=== PATIENT | male | born 1940 | race Caucasian/White ===

== ENCOUNTER → 2020-12-20 | Outpatient (CLI) | payer BC | LOC: SJCVCIMAG 14:07 → SJCVC 14:07 | PROVIDERS: ATTEND Internal Medicine Cardiovascular Disease | DX: I65.23 Occlusion and stenosis of bilateral carotid arteries (principal); I25.10 Atherosclerotic heart disease of native coronary artery without angina pectoris; I10 Essential (primary) hypertension; E78.00 Pure hypercholesterolemia, unspecified; I73.9 Peripheral vascular disease, unspecified; I71.4 Abdominal aortic aneurysm, without rupture; R06.00 Dyspnea, unspecified ==

== ENCOUNTER → 2021-01-08 | Outpatient (CLI) | payer BC | LOC: SJCVC 07:57 → SJCVCIMAG 08:07 | PROVIDERS: ATTEND Internal Medicine Cardiovascular Disease | DX: I25.10 Atherosclerotic heart disease of native coronary artery without angina pectoris (principal); I10 Essential (primary) hypertension; E78.5 Hyperlipidemia, unspecified ==

== ENCOUNTER → 2021-03-24 | Outpatient (CLI) | payer MEDICARE ==
[~2021-03-24] VITALS: Ht 170.2 cm; Wt 81.6 kg
[~2021-03-24] MED LIST: ASPIRIN EC325 MG PO; CALCIUM MAGNES1 EAC2 PO; EFFIENT10 MG PO; FISH OIL 1,001000 M3 PO; MILK THISTLE150 MG PO; NORVASC10 MG PO; SAW PALMETTO160 MG PO; SUPER THERAVIT1 EACH PO; VALSARTAN320 MG PO; VITAMIN B-121000 MC2 PO; VITAMIN C500 M2 PO; VITAMIN E1000 UNIT PO
[2021-03-24 08:28] VITALS: BP 150/88
[2021-03-24 09:04] LABS: HEMATOCRIT 46.1 % (42.0-52.0); HEMOGLOBIN 15.8 gm/dL (14.0-18.0); MCH 32.9 pg (26.0-34.0); MCHC 34.3 g/dL (28.0-37.0); MCV 96.2 fL (80.0-100.0); RBC 4.79 mil/uL (4.50-6.00); RDW 13.3 % (10.5-14.5); WBC 8.1 thou/uL (4.0-11.0)
[2021-03-24 09:10] LABS: CALCIUM 9.6 mg/dL (8.5-10.1); CREATININE 0.9 mg/dL (0.7-1.3)
[2021-03-24 09:11] LABS: POTASSIUM 4.8 mmol/L (3.5-5.1)
== END | disposition home or self-care (01) ==
LOC: CATH 03-03 08:30
PROVIDERS: ATTEND Nuclear Medicine Nuclear Cardiology
DX: I70.211 Atherosclerosis of native arteries of extremities with intermittent claudication, right leg (principal); I70.1 Atherosclerosis of renal artery; M79.604 Pain in right leg; I12.9 Hypertensive chronic kidney disease with stage 1 through stage 4 chronic kidney disease, or unspecified chronic kidney disease; N18.9 Chronic kidney disease, unspecified; E78.5 Hyperlipidemia, unspecified; M79.605 Pain in left leg; I25.10 Atherosclerotic heart disease of native coronary artery without angina pectoris; I42.9 Cardiomyopathy, unspecified; N40.0 Benign prostatic hyperplasia without lower urinary tract symptoms; F17.210 Nicotine dependence, cigarettes, uncomplicated; Z98.890 Other specified postprocedural states; Z79.899 Other long term (current) drug therapy; Z98.41 Cataract extraction status, right eye; Z98.42 Cataract extraction status, left eye; Z88.8 Allergy status to other drugs, medicaments and biological substances

== ENCOUNTER → 2021-04-02 | Outpatient (CLI) | payer MEDICARE | LOC: SJCVCIMAG 14:50 | PROVIDERS: ATTEND Nuclear Medicine Nuclear Cardiology | DX: M79.81 Nontraumatic hematoma of soft tissue (principal); R19.09 Other intra-abdominal and pelvic swelling, mass and lump; R10.30 Lower abdominal pain, unspecified ==